=== PATIENT | female | born 1975 ===

== ENCOUNTER 2018-06-25 12:03 | Emergency (ER) | payer OTHER ==
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
[2018-06-25] MEDS ORDERED: ZOFRAN ONE (14:35)
--- NOTE | 2018-06-25 14:51 | XRay Report ---
LUMBOSACRAL SPINE, 3 VIEWS: History: Back pain Findings: The vertebral bodies, disk spaces and posterior elements are intact. No compression deformity or malalignment. The SI joints are symmetric and unremarkable. Impression: 1. No evidence for acute injury to the lumbar spine.
--- NOTE | 2018-06-25 14:52 | XRay Report ---
ROUTINE CHEST, TWO VIEWS: HISTORY: chest pain. The trachea, heart, mediastinal contour, lung oneill and bony thorax are unremarkable. IMPRESSION: Unremarkable chest x-ray.
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
[2018-06-25 18:16] VITALS: BP 110/60
== END 2018-06-25 18:16 | disposition home or self-care (01) ==
LOC: ED 12:03
DX: S39.012A Strain of muscle, fascia and tendon of lower back, initial encounter (principal); Z88.5 Allergy status to narcotic agent; Z88.0 Allergy status to penicillin; V49.49XA Driver injured in collision with other motor vehicles in traffic accident, initial encounter; Y93.89 Activity, other specified; Y92.488 Other paved roadways as the place of occurrence of the external cause; Y99.8 Other external cause status
CPT/HCPCS: 71046; 72100; 99283; J2405